=== PATIENT | male | born 1970 | race Caucasian/White ===

== ENCOUNTER 2018-12-07 10:07 | Inpatient (IN) | payer OTHER ==
[~2018-12-07] VITALS: Ht 170.2 cm; Wt 61.7 kg
[2019-01-07] MEDS ORDERED: COZAAR50 MG PO (13:00)
[2019-01-17] MEDS ORDERED: TAMSULOSIN HCL0.4 MG PO (09:05)
[2019-01-17] MEDS ORDERED: OXYC1TAB9 PO (09:06)
[2019-01-17] MEDS ORDERED: ACIDOPHILUS-PE1 EAC2 PO (09:06)
[2019-01-17] MEDS ORDERED: PANTOPRAZOLE SO40 MG PO (09:06)
== END 2019-01-17 15:28 | disposition home or self-care (01) | DRG 331 ==
LOC: SURH 01-14 09:27 → O/R 01-14 09:27 → SURH 01-14 10:00
PROVIDERS: ADMIT Surgery
PROC: 0DJD8ZZ Inspection of Lower Intestinal Tract, Via Natural or Artificial Opening Endoscopic (ICD-10-PCS; 2019-01-14)
PROC: 0DTN4ZZ Resection of Sigmoid Colon, Percutaneous Endoscopic Approach (ICD-10-PCS; principal; 2019-01-14 09:00)
DX: K57.20 Diverticulitis of large intestine with perforation and abscess without bleeding (principal); I11.9 Hypertensive heart disease without heart failure

== ENCOUNTER 2019-02-19 21:55 | Inpatient (IN) | payer OTHER ==
[~2019-02-19] VITALS: Ht 170.2 cm; Wt 57.2 kg
[~2019-02-19 21:55] MED LIST: ACIDOPHILUS-PE1 EAC2 PO; COZAAR50 MG PO; OXYC1TAB9 PO; PANTOPRAZOLE SO40 MG PO; TAMSULOSIN HCL0.4 MG PO
[2019-02-23] MEDS ORDERED: PYRIDIUM DS200 MG PO (12:29)
[2019-02-23] MEDS ORDERED: PERCOCET 5-3251 EACH PO (12:30)
== END 2019-02-23 13:55 | disposition home or self-care (01) | DRG 392 ==
LOC: ER 21:55 → SEC-K 02-20 08:54 → SURG 02-20 08:54 → SURH 02-20 08:54 → SURG 02-20 11:40 → SURH 02-22 08:54
PROVIDERS: Urology; ADMIT Surgery
PROC: BW21ZZZ Computerized Tomography (CT Scan) of Abdomen and Pelvis (ICD-10-PCS; 2019-02-19)
PROC: 0T9B80Z Drainage of Bladder with Drainage Device, Via Natural or Artificial Opening Endoscopic (ICD-10-PCS; principal; 2019-02-22 12:00)
DX: K58.8 Other irritable bowel syndrome (principal); R30.0 Dysuria; I11.9 Hypertensive heart disease without heart failure; E80.4 Gilbert syndrome

== ENCOUNTER 2020-08-25 07:26 | Day surgery (SDC) | payer OTHER ==
[~2020-08-25 07:26] MED LIST changes: +PERCOCET 5-3251 EACH PO; +PYRIDIUM DS200 MG PO
[2020-08-25] MEDS ORDERED: COZAAR100 MG PO (11:58)
[2020-08-25] MEDS ORDERED: TINACTIN150 GM TOP (11:59)
[2020-08-25] MEDS ORDERED: LEVSIN/SL0.125 MG SL (12:36)
== END 2020-08-25 14:00 | disposition home or self-care (01) ==
LOC: AMB-ENDOS 07:26
PROVIDERS: ATTEND Surgery
DX: K57.32 Diverticulitis of large intestine without perforation or abscess without bleeding (principal); K64.8 Other hemorrhoids; Z20.828 Contact with and (suspected) exposure to other viral communicable diseases